=== PATIENT | male | born 1940 | race Caucasian/White ===

== ENCOUNTER 2019-05-31 15:40 | Emergency (ER) | payer MEDICARE, OTHER ==
[~2019-05-31] VITALS: Ht 167.6 cm; Wt 70.8 kg
[2019-05-31] MEDS ORDERED: PREDNISONE20 MG PO (17:51)
--- NOTE | 2019-06-01 13:06 | EKG ---
[facility] [address] [facility] [place], [place] [address] Signed Sinus rhythm with premature atrial complexes Otherwise normal ECG No previous ECGs available Confirmed by CARRINGTON CARTAGENA DO ([id number]) on 06/01/2019 1:06:35 PM Electronically Signed By: CARRINGTON CARTAGENA DO 06/01/19 1306 PATIENT NAME: JAVIERVÍCTORNIKI JR Electrocardiogram DATE OF : 40 PHYSICIAN: CARRINGTON CARTAGENA DO REPORT #: [id number] REPORT IS CONFIDENTIAL AND NOT TO BE RELEASED WITHOUT AUTHORIZATION
== END 2019-05-31 19:29 | disposition home or self-care (01) ==
LOC: ED 15:40
DX: J45.901 Unspecified asthma with (acute) exacerbation (principal); Z87.891 Personal history of nicotine dependence; Z88.5 Allergy status to narcotic agent; Z88.6 Allergy status to analgesic agent
CPT/HCPCS: 71045; 80053; 83880; 84484; 85025; 93005; 93010; 94640; 94644; 96374; 99285-25; J2930

== ENCOUNTER 2020-01-12 10:04 | Emergency (ER) | payer MEDICARE, OTHER ==
[~2020-01-12] VITALS: Ht 167.6 cm; Wt 70.8 kg
[~2020-01-12 10:04] MED LIST: PREDNISONE20 MG PO
[2020-01-12] MEDS ORDERED: HYDROXYZINE HCL50 MG PO (10:30)
[2020-01-12] MEDS ORDERED: GABAPENTIN400 MG PO (10:30)
[2020-01-12] MEDS ORDERED: QUETIAPINE FUM100 MG PO (10:30)
[2020-01-12] MEDS ORDERED: LEVAQUIN500 MG PO (12:08)
[2020-01-12] MEDS ORDERED: SEROQUEL50 MG PO (12:27)
== END 2020-01-12 13:31 | disposition home or self-care (01) ==
LOC: ED 10:04
DX: F03.91 Unspecified dementia, unspecified severity, with behavioral disturbance (principal); J18.1 Lobar pneumonia, unspecified organism; Z88.6 Allergy status to analgesic agent; Z88.5 Allergy status to narcotic agent; Z79.899 Other long term (current) drug therapy; W19.XXXA Unspecified fall, initial encounter
CPT/HCPCS: 71045; 80053; 85025; 96360; 99285-25; J7040